=== PATIENT | male | born 1995 | race Caucasian/White ===

== ENCOUNTER → 2018-10-15 10:19 | Outpatient (CLI) | payer OTHER, SELFPAY ==
[2018-10-15 12:17] LABS: Urine N gonorrhoeae NOT DETECTED
[2018-10-15 12:29] LABS: Urine Chlamydia NOT DETECTED
== END ==
PROVIDERS: PCP Nurse Practitioner; Visit Provider Physician Assistant
DX: Z11.3 Encounter for screening for infections with a predominantly sexual mode of transmission (principal)
CPT/HCPCS: 87252; 87491; 87591